=== PATIENT | female | born 1965 | race African-American/Black ===

== ENCOUNTER 2018-02-03 15:07 | Outpatient (CLI) | payer BC | END 2018-02-03 15:08 | disposition home or self-care (01) | LOC: BICMAMMO 15:07 | PROVIDERS: ATTEND Family Medicine | DX: Z12.31 Encounter for screening mammogram for malignant neoplasm of breast (principal); Z80.3 Family history of malignant neoplasm of breast | CPT/HCPCS: 77063; 77067 ==

== ENCOUNTER 2018-07-05 15:18 | Outpatient (CLI) | payer BC ==
--- NOTE | 2018-07-05 16:27 | ULT ---
US Renal Bilateral STANDARD: 07/05/2018 12:00 AM CLINICAL HISTORY: Hematuria; renal cyst. STUDY: Renal ultrasound COMPARISON: 12/02/2014 FINDINGS: Right kidney: Echogenicity: Normal. Masses/cysts: Multiple cysts measuring up to 3 cm in size. The cysts are parapelvic in location. Hydronephrosis: None. Calcifications: None. Length: 9.6 cm Left kidney: Echogenicity: Normal. Masses/cysts: None. Hydronephrosis: None. Calcifications: None. Length: 9.3 cm Limited visualization of the urinary bladder is unremarkable. IMPRESSION: Right renal cysts
== END 2018-07-05 15:19 | disposition home or self-care (01) ==
LOC: BICULT 15:18
PROVIDERS: ATTEND Urology
DX: R31.29 Other microscopic hematuria (principal); N28.1 Cyst of kidney, acquired
CPT/HCPCS: 76770

== ENCOUNTER 2019-02-12 09:13 | Outpatient (CLI) | payer BC ==
--- NOTE | 2019-02-12 16:49 | MMO ---
Bilateral MAMMO Bilat Screen DDI+ELZA. CLINICAL HISTORY: Patient is 54 years old and is seen for screening. The patient has the following family history of breast cancer: cousin female and maternal grandmother. The patient has no personal history of cancer. VIEWS: The views performed were: bilateral craniocaudal with tomosynthesis and bilateral mediolateral oblique with tomosynthesis. FILMS COMPARED: The present examination has been compared to prior imaging studies performed at [facility] on 11/26/2014, 01/30/2016, 01/31/2017 and 02/03/2018. This study has been interpreted with the assistance of computer-aided detection. MAMMOGRAM FINDINGS: The breasts are almost entirely fat. There is an irregular mass measuring 7 millimeters with spiculated margins seen in the anterior region of the left breast at 6 o'clock located 5 centimeters from the nipple. The left breast mass is suspicious for breast cancer. In the right breast, there are no suspicious masses, calcifications or areas of architectural distortion. IMPRESSION: MASS IN THE LEFT BREAST REQUIRES ADDITIONAL EVALUATION. ADDITIONAL PROJECTIONS ARE RECOMMENDED. AN ULTRASOUND EXAM IS RECOMMENDED. SPOT MAGNIFICATION VIEW(S) ARE RECOMMENDED. ADDITIONAL IMAGING. THE RESULTS OF THIS EXAM WERE SENT TO THE PATIENT. ACR BI-RADS Category 0 - Incomplete: Need additional imaging evaluation. [facility] will notify the patient of the need for additional imaging services. MAMMOGRAPHY NOTE: 1. A negative mammogram report should not delay a biopsy if a dominant of clinically suspicious mass is present. 2. Approximately 10% to 15% of breast cancers are not detected by mammography. 3. Adenosis and dense breasts may obscure an underlying neoplasm. Reported by: JAMEY MARCH MD Electonically Signed: [id number]
== END 2019-02-12 09:14 | disposition home or self-care (01) ==
LOC: BICMAMMO 09:13
PROVIDERS: ATTEND Family Medicine
DX: Z12.31 Encounter for screening mammogram for malignant neoplasm of breast (principal); N63.20 Unspecified lump in the left breast, unspecified quadrant; Z80.3 Family history of malignant neoplasm of breast
CPT/HCPCS: 77063; 77067

== ENCOUNTER 2019-02-20 12:25 | Outpatient (CLI) | payer BC ==
--- NOTE | 2019-02-20 13:08 | MMO ---
Left Breast MAMMO Unilat Diag DDI LT+ELZA. CLINICAL HISTORY: Patient is 54 years old and is seen for additional evaluation requested from prior study. The patient has the following family history of breast cancer: cousin female and maternal grandmother. The patient has no personal history of cancer. VIEWS: The views performed were: left craniocaudal spot compression with tomosynthesis; left mediolateral oblique spot compression with tomosynthesis; and left mediolateral with tomosynthesis. FILMS COMPARED: The present examination has been compared to prior imaging studies performed at [facility] on 01/31/2017, 02/03/2018, 02/12/2019 and 02/20/2019. This study has been interpreted with the assistance of computer-aided detection. MAMMOGRAM FINDINGS: The breast is almost entirely fat. There is an irregular mass measuring 9 millimeters with spiculated margins seen in the left breast at 6 o'clock. A hypoechoic mass is demonstrated in this location sonographically. IMPRESSION: MASS IN THE LEFT BREAST IS SUSPICIOUS. AN ULTRASOUND-GUIDED BREAST BIOPSY IS RECOMMENDED. RESULTS AND RECOMMENDATIONS DISCUSSED WITH THE PATIENT AND QUESTIONS ANSWERED. THE RESULTS OF THIS EXAM WERE SENT TO THE PATIENT. ACR BI-RADS Category 4 - Suspicious abnormality - biopsy should be considered MAMMOGRAPHY NOTE: 1. A negative mammogram report should not delay a biopsy if a dominant of clinically suspicious mass is present. 2. Approximately 10% to 15% of breast cancers are not detected by mammography. 3. Adenosis and dense breasts may obscure an underlying neoplasm. Reported by: CASEY SEGOVIA MD Electonically Signed: [id number]
--- NOTE | 2019-02-20 13:20 | ULT ---
LIMITED LEFT BREAST ULTRASOUND: 02/20/2019 PROVIDED CLINICAL HISTORY: Abnormal mammogram. FINDINGS: Limited sonographic interrogation was performed of the left breast at the 6 o'clock position in the r egion of mammographic concern. There is an irregular hypoechoic mass present at the 6 o'clock positio n, measuring approximately 8 mm in greatest dimension. IMPRESSION: BI-RADS category 4 - suspicious abnormality. Ultrasound guided biopsy is recommended. Results and recommendations discussed with the patient and q uestions answered. POS: OFF
== END 2019-02-20 12:26 | disposition home or self-care (01) ==
LOC: BICMAMMO 12:25
PROVIDERS: ATTEND Family Medicine
DX: N63.20 Unspecified lump in the left breast, unspecified quadrant (principal)
CPT/HCPCS: G0279

== ENCOUNTER → 2019-02-23 | Day surgery (SDC) | payer BC ==
--- NOTE | 2019-02-23 13:34 | MMO ---
Left Breast MAMMO Unilat Diag DDI LT. CLINICAL HISTORY: Patient is 54 years old and is seen for breast biopsy. The patient has the following family history of breast cancer: cousin female and maternal grandmother. The patient has no personal history of cancer. VIEWS: The views performed were: left craniocaudal and left mediolateral oblique. FILMS COMPARED: The present examination has been compared to prior imaging studies performed at [facility] on 02/03/2018, 02/12/2019 and 02/20/2019. This study has been interpreted with the assistance of computer-aided detection. MAMMOGRAM FINDINGS: There are scattered fibroglandular densities. The patient is status post biopsy and the clip is in good position overlying the suspicious lesion within the inferior left breast. IMPRESSION: FINDING IN THE LEFT BREAST IS SUSPICIOUS. BIOPSY IS RECOMMENDED. THE RESULTS OF THIS EXAM WERE SENT TO THE PATIENT. ACR BI-RADS Category 4 - Suspicious abnormality - biopsy should be considered MAMMOGRAPHY NOTE: 1. A negative mammogram report should not delay a biopsy if a dominant of clinically suspicious mass is present. 2. Approximately 10% to 15% of breast cancers are not detected by mammography. 3. Adenosis and dense breasts may obscure an underlying neoplasm. Reported by: LORI DOMINGUEZ MD Electonically Signed: [id number]
--- NOTE | 2019-02-23 14:26 | ULT ---
ULTRASOUND-GUIDED LEFT BREAST BIOPSY: DATE: 02/23/2019. HISTORY: A 54-year-old female with a hypoechoic spiculated 6 mm mass at the 6 o'clock position of the left fariba ast. FINDINGS: Informed consent obtained prior to the procedure. Preprocedural imaging demonstrates a solid shadowing hypoechoic irregular mass at the 6 o'clock posit ion measuring up to 5-6 mm. The skin overlying the lesion was prepped and draped in normal sterile fashion and anesthetized with 1% buffered Lidocaine. With direct sonographic guidance, four 14-gauge core biopsies were obtained of the lesion. Specimens were sent to pathology for assessment. Post biopsy clip was placed adjacent to the lesion and confi rmed with mammography. The patient tolerated the procedure well. IMPRESSION: Successful ultrasound-guided core biopsy of the left breast mass. POS: SABRINA
== END ==
LOC: BICULT 12:41
PROVIDERS: ATTEND Family Medicine
PROC: 0H95XZX Drainage of Chest Skin, External Approach, Diagnostic (ICD-10-PCS; principal; 2019-02-23)
DX: D05.92 Unspecified type of carcinoma in situ of left breast (principal); Z80.3 Family history of malignant neoplasm of breast
CPT/HCPCS: 19083; 88305

== ENCOUNTER 2019-04-13 08:25 | Outpatient (CLI) | payer BC ==
[2019-04-13 11:29] LABS: #Eosinphils 0.1 thou/uL (0.0-0.7); #Lymphocytes 2.6 thou/uL (1.20-3.40); #Monocytes 0.4 thou/uL (0.11-0.59); #Neutrophils 2.7 thou/uL (1.40-6.50); %Basophils 0.7 % (0.0-1.0); %Eosinophils 1.7 % (0.0-10.0); %Lymphocytes 45.3 % (21.0-51.0); %Monocytes 6.1 % (0.0-10.0); %Neutrophils 46.2 % (42.0-75.0); Hemoglobin 13.3 g/dL (12.0-16.0); Mean Corpuscular HGB CONC 33.1 g/dL (32.0-36.0); Mean Corpuscular Hemoglobin 29.8 pg (27.0-31.0); Mean Corpuscular Volume 90.2 fL (78.0-98.0); Mean Platelet Volume 9.2 fL (7.4-10.4); Platelet Count 248 thou/uL (130-400); RBC Distribution Width 12.5 % (11.5-14.5); Red Blood Cell (RBC) Count 4.47 mill/uL (4.20-5.40); White Blood Cell (WBC) Count 5.8 thou/uL (4.8-10.8)
[2019-04-13 11:53] LABS: Anion Gap 10 mmol/L (10-20); BUN (Urea Nitrogen) 11 mg/dL (9.8-20.1); Calc. Creatinine Clearance 0 mL/min (70-130); Calcium 9.6 mg/dL (7.8-10.44); Carbon Dioxide 29 mmol/L (22-29); Chloride 105 mmol/L (98-107); Estimated GFR-MDRD 77; Glucose 83 mg/dL (70-105); Potassium 4.3 mmol/L (3.5-5.1)
[2019-04-13 12:02] LABS: Sodium 140 mmol/L (136-145)
== END 2019-04-13 08:26 | disposition home or self-care (01) ==
LOC: LABBT 08:25
PROVIDERS: ATTEND Surgery
DX: Z01.812 Encounter for preprocedural laboratory examination (principal); C50.912 Malignant neoplasm of unspecified site of left female breast
CPT/HCPCS: 80048; 85025

== ENCOUNTER 2019-04-16 06:49 | Day surgery (SDC) | payer BC ==
[2019-04-13 10:54] VITALS: BMI 32.8
--- NOTE | 2019-04-16 09:09 | MMO ---
Needle localization left breast mammographic guided HISTORY: Left breast cancer. FINDINGS: After explaining the procedure and answering all questions, the subtle isodense mass and lo calization clip at the inferior aspect of the left breast were visualized. Sterile technique, buffered local anesthesia, mammographic guidance, and an anterior approach were used to carefully adv ance a 5 cm Celina needle and wire to the posterior margin of the isodense mass, immediately deep to the localization clip. The tip of the needle is approximately 0.9 cm beyond the localization clip. Final images were marked and patient was sent to nuclear medicine for additional imaging. IMPRESSION: Technically successful needle localization left breast cancer.
--- NOTE | 2019-04-16 09:22 | NM ---
PROCEDURE: Lymphoscintigraphy of the left breast HISTORY: Left breast cancer in the central portion of the breast APPLICATION SUPPORT LEAD: Mary Beth ANESTHESIA: 3 mL of buffered 1% lidocaine AGENT: 373 uCi of technetium 99 M filtered sulfur colloid TECHNIQUE: The breast was prepped with alcohol in the periareolar region. Lidocaine was used to anest hetize 4 spots surrounding the nipple at the 12:00, 3:00, 6:00, and 9:00 positions. The radiopharmaceutical was then injected in these 4 locations surrounding the nipple. Massage was performed of the breast helping the radiopharmaceutical enter the lymphatics. Images obta ined showed uptake of the radiopharmaceutical within an axillary lymph node. IMPRESSION: Left axillary sentinel lymph node
[2019-04-16] MEDS ORDERED: Ketorolac Tromethamine 30 MG/ML VIAL ONE (09:58)
[2019-04-16] MEDS ORDERED: PROPOFOL 200 MG/20 ML VIAL ONE (09:58)
[2019-04-16] MEDS ORDERED: Ondansetron PF 4 MG/2 ML Vial ONE ×2 (09:58→13:03)
[2019-04-16] MEDS ORDERED: Lidocaine 1% PF 5 ML VIAL ONE (09:58)
[2019-04-16] MEDS ORDERED: Dexamethasone 20 MG/5 ML VIAL ONE (09:58)
[2019-04-16] MEDS ORDERED: Fentanyl 100 MCG/2 ML VIAL ONE ×4 (11:14→13:48)
[2019-04-16] MEDS ORDERED: Bupivacaine 0.25% HCL 30 ML VIAL ONE (11:25)
[2019-04-16] MEDS ORDERED: Methylene Blue 50 MG/10 ML AMPUL ONE (11:25)
[2019-04-16] MEDS ORDERED: Lidocaine 2% w/Epinephrine 1:200K 20 ML VIAL ONE (11:25)
--- NOTE | 2019-04-16 14:27 | MMO ---
LEFT BREAST SPECIMEN MAMMOGRAM: Date: 04/16/2019 HISTORY: Lumpectomy post needle and wire localization of biopsy marker clip lower left breast. FINDINGS/IMPRESSION: Single specimen mammogram is submitted. Provided specimen demonstrates a localization wire in place. The biopsy marker clip is noted and small focus of architectural distortion is seen adjacent to the b iopsy marker clip. Findings were relayed to Dr. Rider in the operating room at time the specimen ma mmogram was submitted. POS: SABRINA
[2019-04-16] MEDS ORDERED: Promethazine HCl 25 MG/ML VIAL ONE (14:44)
--- NOTE | 2019-04-16 20:05 | OP ---
DATE OF PROCEDURE: 04/16/2019 PREOPERATIVE DIAGNOSIS: Left breast cancer. POSTOPERATIVE DIAGNOSIS: Left breast cancer. PROCEDURE: 1. Left breast partial mastectomy after needle localization. 2. Left breast deep axillary node biopsy (sentinel node protocol). ANESTHESIA: General. ESTIMATED BLOOD LOSS: Minimal. COMPLICATIONS: None. SPECIMENS: 1. Left breast lumpectomy, marked with 2 short superior, 1 long lateral, sent to Path for final diagnosis. 2. Mccaskill node sent to Path for final diagnosis. TECHNIQUE: The patient underwent preop placement of needle localization wire and lymphoscintigraphy, taken to the operating room and laid supine on the table. After general anesthetic was obtained, the breast, arm, axilla are prepped and draped in a sterile fashion. Incision made in the inferior hairline of the left axilla. Neoprobe was used to find the area of increased uptake. 5 mL of methylene blue dye had been infiltrated under left nipple prior to the procedure and massaged for 10 minutes. There was an area of blue and increased uptake with the Neoprobe. This was removed as sentinel node. The background count dropped to near zero. The wound was irrigated. Local anesthetic was applied and the wound was closed using 3-0 Vicryl, 4-0 Monocryl, and Dermabond. Next, incision was made on the inferior areolar of the left breast and flaps were raised superomedially and inferolaterally deep to the needle localization of wire. Specimen was sent to specimen x-ray, which revealed the clip and the abnormality to be in the specimen. The specimen had been marked with 2 short superior, 1 long lateral. The wound was irrigated. Local anesthetic was applied. The wound was closed using 3-0 Vicryl, 4-0 Monocryl, and Dermabond. The patient was sent to Recovery in stable condition. All instrument counts, needle counts, lap counts were correct. Job ID: [id number]
== END 2019-04-16 15:30 | disposition home or self-care (01) ==
LOC: SDC 06:49
PROVIDERS: ATTEND Surgery
PROC: 0HBU0ZZ Excision of Left Breast, Open Approach (ICD-10-PCS; principal; 2019-04-16)
PROC: 07B60ZX Excision of Left Axillary Lymphatic, Open Approach, Diagnostic (ICD-10-PCS; principal; 2019-04-16)
DX: C50.812 Malignant neoplasm of overlapping sites of left female breast (principal); E78.5 Hyperlipidemia, unspecified; E03.9 Hypothyroidism, unspecified; I10 Essential (primary) hypertension; Z17.0 Estrogen receptor positive status [ER+]; Z79.899 Other long term (current) drug therapy; Z91.013 Allergy to seafood
CPT/HCPCS: 19281; 76098; 78195; 88307; 88309; 88341; 88342; A9541; J0690; J1100; J1885; J2001; J2405; J2550; J2704; J3010; Q9968; S0020

== ENCOUNTER 2019-07-26 22:56 | Emergency (ER) | payer BC ==
[2019-07-27] MEDS ORDERED: Morphine 2 MG/ML SYRINGE ONE (01:44)
[2019-07-27] MEDS ORDERED: Ondansetron ODT 4 MG TAB ONE (01:44)
== END 2019-07-27 01:53 | disposition home or self-care (01) ==
LOC: ERS 22:56
DX: S29.012A Strain of muscle and tendon of back wall of thorax, initial encounter (principal); X50.1XXA Overexertion from prolonged static or awkward postures, initial encounter; E03.9 Hypothyroidism, unspecified
CPT/HCPCS: 96372; 99283; J2270; Q0162

== ENCOUNTER 2019-08-27 14:58 | Outpatient (CLI) | payer BC ==
--- NOTE | 2019-08-27 18:51 | BD ---
Exam: DEXA Bone Density 08/27/19 INDICATIONS: Postmenopausal osteoporosis screening. Lumbar Spine: BMD (g/cm2) T-SCORE L1 1.109 1.1 L2 1.147 1.1 L3 1.157 0.7 L4 1.064 0.0 L1-L4 1.118 0.6 Femoral Neck: 0.734 -1.0 Total Femur: 0.872 -0.6 Impression: Bone mineral density of the lumbar spine and femoral neck are both within normal range. POS: AGW
== END 2019-08-27 14:59 | disposition home or self-care (01) ==
LOC: BICMAMMO 14:58
PROVIDERS: ATTEND Family Medicine
DX: Z13.820 Encounter for screening for osteoporosis (principal); Z78.0 Asymptomatic menopausal state
CPT/HCPCS: 77080

== ENCOUNTER 2019-09-17 13:24 | Outpatient (CLI) | payer BC | END 2019-09-17 13:25 | disposition home or self-care (01) | LOC: ULT 13:24 | PROVIDERS: ATTEND Family Medicine | DX: R00.2 Palpitations (principal) | CPT/HCPCS: 93306 ==

== ENCOUNTER 2020-02-26 08:16 | Outpatient (CLI) | payer BC ==
--- NOTE | 2020-02-26 08:57 | MMO ---
Bilateral MAMMO Bilat Diag DDI+ELZA. CLINICAL HISTORY: Patient is 55 years old and is seen for diagnostic exam. The patient has the following family history of breast cancer: cousin female and maternal grandmother. The patient has a history of Ultrasound guided core biopsy procedure revealed invasive moderately differentiated ductal left breast carcinoma in February,. The patient has a history of left Lumpectomy in March, - malignant. VIEWS: The views performed were: left mediolateral. FILMS COMPARED: The present examination has been compared to prior imaging studies performed at [facility] on 02/12/2019, 02/20/2019 and 02/23/2019. This study has been interpreted with the assistance of computer-aided detection. MAMMOGRAM FINDINGS: There are scattered fibroglandular densities. There are new post operative changes seen in the left breast. There are no suspicious masses, suspicious calcifications, or suspicious areas of architectural distortion. IMPRESSION: THERE IS NO MAMMOGRAPHIC EVIDENCE OF MALIGNANCY. A ROUTINE FOLLOW-UP MAMMOGRAM IN 1 YEAR IS RECOMMENDED. THE RESULTS OF THIS EXAM WERE SENT TO THE PATIENT. ACR BI-RADS Category 2 - Benign finding MAMMOGRAPHY NOTE: 1. A negative mammogram report should not delay a biopsy if a dominant of clinically suspicious mass is present. 2. Approximately 10% to 15% of breast cancers are not detected by mammography. 3. Adenosis and dense breasts may obscure an underlying neoplasm. Reported by: CASEY SEGOVIA MD Electonically Signed: [id number]
== END 2020-02-26 08:17 | disposition home or self-care (01) ==
LOC: BICMAMMO 08:16
PROVIDERS: ATTEND Surgery
DX: Z08 Encounter for follow-up examination after completed treatment for malignant neoplasm (principal); Z85.3 Personal history of malignant neoplasm of breast
CPT/HCPCS: 77066; G0279

== ENCOUNTER 2020-10-09 09:31 | Outpatient (CLI) | payer BC | END 2020-10-09 09:32 | disposition home or self-care (01) | LOC: BICMAMMO 09:31 | PROVIDERS: ATTEND Internal Medicine Hematology & Oncology | DX: Z13.820 Encounter for screening for osteoporosis (principal); T38.6X5A Adverse effect of antigonadotrophins, antiestrogens, antiandrogens, not elsewhere classified, initial encounter; C50.812 Malignant neoplasm of overlapping sites of left female breast | CPT/HCPCS: 77080 ==

== ENCOUNTER 2021-05-07 08:28 | Outpatient (CLI) | payer BC | END 2021-05-07 08:29 | disposition home or self-care (01) | LOC: BICMAMMO 08:28 | PROVIDERS: ATTEND Internal Medicine Hematology & Oncology | DX: C50.812 Malignant neoplasm of overlapping sites of left female breast (principal) | CPT/HCPCS: 77066; G0279 ==

== ENCOUNTER 2022-05-12 08:34 | Outpatient (CLI) | payer BC | END 2022-05-12 08:35 | disposition home or self-care (01) | LOC: BICMAMMO 08:34 | PROVIDERS: ATTEND Family Medicine | DX: Z08 Encounter for follow-up examination after completed treatment for malignant neoplasm (principal); Z85.3 Personal history of malignant neoplasm of breast | CPT/HCPCS: 77066; G0279 ==